=== PATIENT | female | born 1960 | race Caucasian/White ===

== ENCOUNTER → 2016-11-22 | Outpatient (CLI) | payer OTHER, BC ==
--- NOTE | 2016-11-22 16:04 | DIAGNOSTIC IMAGING REPORT ---
RIGHT LOWER EXTREMITY VENOUS DOPPLER HISTORY: Right calf pain. COMPARISON STUDY: None. FINDINGS: There is normal compressibility, flow, and augmentation within the right lower extremity deep venous system. Slightly complex 6.1 x 7.2 x 2.8 cm popliteal cyst. IMPRESSION: No DVT within the right lower extremity Electronically signed by: Todd Thompson M.D. 11/22/2016 4:03 PM Dictated Date/Time: 11/22/2016 4:01 PM
== END | disposition home or self-care (01) ==
LOC: C.ULTR 15:23
PROVIDERS: ATTEND Orthopaedic Surgery
DX: M79.661 Pain in right lower leg (principal)